=== PATIENT | male | born 1980 | race Hispanic/Latino ===

== ENCOUNTER 2018-08-18 13:44 | Inpatient (IN) | payer MEDICAID | END 2018-08-20 17:30 | disposition home or self-care (01) | LOC: EDH 13:44 → 4AH 08-19 18:34 → EDHIP 13:45 → 2BH 16:27 | PROC: 057Y3ZZ Dilation of Upper Vein, Percutaneous Approach (ICD-10-PCS; principal; ~2018-08-18) | DX: T82.868A Thrombosis due to vascular prosthetic devices, implants and grafts, initial encounter (principal); E11.22 Type 2 diabetes mellitus with diabetic chronic kidney disease; E11.51 Type 2 diabetes mellitus with diabetic peripheral angiopathy without gangrene; I12.0 Hypertensive chronic kidney disease with stage 5 chronic kidney disease or end stage renal disease; N18.6 End stage renal disease; Z99.2 Dependence on renal dialysis; H54.8 Legal blindness, as defined in USA; R41.82 Altered mental status, unspecified ==

== ENCOUNTER 2018-08-24 12:24 | Emergency (ER) | payer MEDICAID ==
[~2018-08-24 12:24] MED LIST: ACET-2160 PO; ASPI-1197 PO; ATOR40TA71 PO; CALC667C10 PO; INSU100I21 SQ; INSU100I3 SQ; LEVE750T10 PO; LISI40TA4 PO; METO-391 PO
[2018-08-24 13:05] LABS: BASOPHILS % (AUTO) 0.3 % (0.0-5.0); EOSINOPHILS % (AUTO) 0.1 % (0.0-8.0); HEMATOCRIT 36.2 % (42-54); LYMPHOCYTES % (AUTO) 5.6 % (21.0-51.0); MEAN CORPUSCULAR HEMOGLOBIN 31.8 pg (27.0-33.0); MEAN CORPUSCULAR HGB CONC 32.5 g/dL (32.0-36.0); MEAN CORPUSCULAR VOLUME 97.6 fL (79-99); MONOCYTES % (AUTO) 3.6 % (3.0-13.0); NEUTROPHILS % (AUTO) 90.4 % (40.0-77.0); PLATELET COUNT (AUTO) 163 K/uL (130-400); RED BLOOD CELL COUNT(AUTO) 3.71 MIL/uL (4.50-6.20); RED CELL DISTRIBUTION WIDTH 18.5 % (11.0-15.5); WHITE BLOOD COUNT (AUTO) 7.4 K/uL (4.8-10.8)
[2018-08-24 13:12] LABS: CREATININE 6.3 mg/dL (0.5-1.5)
[2018-08-24 13:17] LABS: ALBUMIN 2.8 g/dL (3.5-5.0); BILIRUBIN,TOTAL 0.7 mg/dL (0.2-1.0); TOTAL PROTEIN, SERUM 6.9 g/dL (6.0-8.3)
[2018-08-24 13:25] LABS: B-TYPE NATRIURETIC PEPTIDE > 5000 pg/mL (0-100)
== END 2018-08-24 14:23 | disposition home or self-care (01) ==
LOC: EDH 12:24
DX: R60.0 Localized edema (principal); I12.0 Hypertensive chronic kidney disease with stage 5 chronic kidney disease or end stage renal disease; E11.22 Type 2 diabetes mellitus with diabetic chronic kidney disease; N18.6 End stage renal disease; Z99.2 Dependence on renal dialysis; Z72.0 Tobacco use
CPT/HCPCS: 36415; 80053; 83880; 84484; 85025; 93005